=== PATIENT | male | born 1965 ===

== ENCOUNTER 2021-10-20 12:40 | Inpatient (IN) | payer MEDICARE ==
[~2021-10-20] VITALS: Ht 193 cm; Wt 114.8 kg
[2021-10-20] MEDS ORDERED: OLANZapine 5 MG RAPDIS TABLET PO PRN (14:15)
[2021-10-20] MEDS ORDERED: LORazepam 2 MG TABLET PO PRN (14:15)
[2021-10-20] MEDS ORDERED: ZOLPIDEM TARTRATE 10 MG TABLET PO PRN (14:15)
[2021-10-20 14:43] LABS: BASOPHILS % (AUTO) 0.5 % (0.0-2.0); EOSINOPHILS % (AUTO) 1.9 % (1.0-6.0); HEMATOCRIT 40.3 % (41-53); HEMOGLOBIN 12.8 g/dL (13.5-17.5); LYMPHOCYTES % (AUTO) 27.9 % (22.0-44.0); MEAN CORPUSCULAR HGB CONC 31.8 G/dL (31.0-37.0); MEAN CORPUSCULAR VOLUME 72 fL (80-100); MONOCYTES # (AUTO) 0.3 K/uL (0.1-1.0); MONOCYTES % (AUTO) 3.7 % (2.0-9.0); NEUTROPHILS # (AUTO) 4.7 K/uL (1.8-7.7); PLATELET COUNT (AUTO) 228 K/uL (150-450); RED BLOOD CELL COUNT(AUTO) 5.57 MIL/uL (4.50-5.90); RED CELL DISTRIBUTION WIDTH 15.6 % (11.5-14.5)
[2021-10-20 14:52] LABS: ANION GAP 4 mmol/L (8-16); CALCIUM, TOTAL 9.4 mg/dL (8.8-10.5); CARBON DIOXIDE 29 mmol/L (22-29); CHLORIDE 103 mmol/L (98-107); CREATININE 1.03 mg/dL (0.60-1.30); GLUCOSE,RANDOM 90 mg/dL (70-110); POTASSIUM 4.4 mmol/L (3.5-5.1); SODIUM SERUM 136 mmol/L (136-145); UREA NITROGEN, BLOOD 9 mg/dL (7-18)
[2021-10-20 14:58] LABS: ALANINE AMINOTRANSFERASE 41 U/L (12-78); ALBUMIN 3.7 g/dL (3.4-5.0); ALKALINE PHOSPHATASE 82 U/L (46-116); ASPARTATE AMINOTRANSFERASE 34 U/L (15-37); BILIRUBIN,TOTAL 0.7 mg/dL (0.1-1.0); TOTAL PROTEIN, SERUM 7.7 g/dL (6.4-8.2)
[2021-10-20 15:03] LABS: GLOMERULAR FILTR. RATE CALC > 60 mL/min (>60)
[2021-10-20 15:05] LABS: APPEARANCE,URINE CLEAR (CLEAR); BILIRUBIN,URINE NEGATIVE (NEGATIVE); GLUCOSE, URINE (UA) NEGATIVE (NEGATIVE); KETONES,URINE NEGATIVE (NEGATIVE); LEUKOCYTE ESTERASE ,URINE NEGATIVE (NEGATIVE); NITRATE,URINE NEGATIVE (NEGATIVE); OCCULT BLOOD,URINE NEGATIVE (NEGATIVE); PH,URINE 5.5 (5.0-8.0); PROTEIN,URINE NEGATIVE (NEGATIVE); SPECIFIC GRAVITIY, URINE 1.022 (1.003-1.030); UROBILINOGEN,URINE <=1.0 mg/dL (<=1.0)
[2021-10-20 15:11] LABS: AMPHET/METH SCREEN,URINE NEGATIVE (NEGATIVE); BARBITURATE SCREEN, URINE NEGATIVE (NEGATIVE); BENZODIAZEPINES SCREEN,URINE NEGATIVE (NEGATIVE); CANNABINOID SCREEN,URINE NEGATIVE (NEGATIVE); COCAINE SCREEN,URINE NEGATIVE (NEGATIVE); METHADONE SCREEN, URINE NEGATIVE (NEGATIVE); OPIATE SCREEN,URINE NEGATIVE (NEGATIVE)
[2021-10-20 15:15] LABS: PHENCYCLIDINE SCREEN,URINE NEGATIVE (NEGATIVE)
[2021-10-20 15:38] LABS: BACTERIA,URINE None Seen /HPF (None Seen); RBC,URINE None Seen /HPF (0-2); WBC,URINE None Seen /HPF (0-5)
[2021-10-20 18:53] LABS: COVID AG,FIA SOURCE NASAL SWAB
[2021-10-21] MEDS ORDERED: GuaiFENesin/D-METHORPHAN [SUGAR-FREE] 200-20MG/10 ML SYRUP UDCUP PO PRN (10:30)
[2021-10-21] MEDS ORDERED: ACETAMINOPHEN 325 MG TABLET PO PRN (10:30)
[2021-10-21] MEDS ORDERED: MAG HYDROX/AL HYDROX/SIMETH ES 30 ML SUSPENSION UDCUP PO PRN (10:30)
[2021-10-21] MEDS ORDERED: LOPERAMIDE HCL 2 MG CAPSULE PO PRN (10:30)
[2021-10-21] MEDS ORDERED: PROMETHAZINE HCL 25 MG TABLET PO PRN (10:30)
[2021-10-21] MEDS ORDERED: MAGNESIUM HYDROXIDE SUSPENSION 30 ML UDCUP PO PRN (10:30)
[2021-10-21] MEDS ORDERED: HydrOXYzine PAMOATE 50 MG CAPSULE PO PRN (10:30)
[2021-10-21] MEDS ORDERED: TUBERCULIN, PURIFIED PROTEIN DERIVATIVE 5 TU/0.1 ML SYRINGE ID ONE (10:30)
[2021-10-21 10:45] VITALS: BP 131/76
[2021-10-21] MEDS: THIAMINE 100 MG TABLET PO SCH (16:02)
[2021-10-21] MEDS ORDERED: QUEtiapine FUMARATE 100 MG TABLET PO PRN (16:30)
[2021-10-21 16:37] VITALS: BP 129/88
[2021-10-21] MEDS ORDERED: DIVALPROEX SODIUM 250 MG ER TABLET PO SCH (17:00)
[2021-10-21] MEDS: QUEtiapine FUMARATE 200 MG TABLET PO SCH (20:01)
[2021-10-21] MEDS: MELATONIN 5 MG TABLET PO SCH (21:00)
[2021-10-21] MEDS ORDERED: OLANZapine 5 MG RAPDIS TABLET PO SCH (21:00)
[2021-10-22] MEDS: OMEGA-3/DHA/EPA/FISH OIL 1,000 MG CAPSULE PO SCH ×2 (07:55→09:00)
[2021-10-22] MEDS: NALTREXONE HCL 50 MG TABLET PO SCH ×2 (07:55→09:00)
[2021-10-22] MEDS: DIVALPROEX SODIUM 500 MG ER TABLET PO SCH ×3 (07:55→20:21)
[2021-10-22] MEDS: QUEtiapine FUMARATE 200 MG TABLET PO SCH ×2 (07:55→20:22)
[2021-10-22] MEDS: FOLIC ACID 1 MG TABLET PO SCH ×2 (07:55→09:00)
[2021-10-22] MEDS: THIAMINE 100 MG TABLET PO SCH ×3 (07:55→15:58)
[2021-10-22] MEDS: MULTIVITAMINS WITH MINERALS, THERAPEUTIC TABLET PO SCH ×2 (07:55→09:00)
[2021-10-22] MEDS: ARIPiprazole 15 MG TABLET PO SCH (07:55)
[2021-10-22] MEDS ORDERED: HALOPERIDOL LACTATE 5 MG/ML VIAL IM ONE (08:15)
[2021-10-22] MEDS ORDERED: LORazepam 2 MG/ML VIAL IM ONE (08:15)
[2021-10-22] MEDS ORDERED: DiphenhydrAMINE HCL 50 MG/ML VIAL IM ONE (08:15)
[2021-10-22] MEDS ORDERED: DULoxetine HCL 20 MG CAPSULE PO SCH (09:00)
[2021-10-22 10:02] VITALS: BP 147/96
[2021-10-22 16:17] VITALS: BP 132/76
[2021-10-22] MEDS ORDERED: NALT50TA PO (16:35)
[2021-10-22] MEDS ORDERED: DIVA-80 PO (16:35)
[2021-10-22] MEDS ORDERED: QUET200T30 PO (16:35)
[2021-10-22] MEDS ORDERED: MELA5TAB40 PO (16:35)
[2021-10-22] MEDS ORDERED: OMEG-108 PO (16:35)
[2021-10-22] MEDS: MELATONIN 5 MG TABLET PO SCH (20:22)
[2021-10-23] MEDS: ARIPiprazole 15 MG TABLET PO SCH (09:00)
[2021-10-23] MEDS: OMEGA-3/DHA/EPA/FISH OIL 1,000 MG CAPSULE PO SCH (09:00)
[2021-10-23] MEDS: NALTREXONE HCL 50 MG TABLET PO SCH (09:00)
[2021-10-23] MEDS: MULTIVITAMINS WITH MINERALS, THERAPEUTIC TABLET PO SCH (09:00)
[2021-10-23] MEDS: DIVALPROEX SODIUM 500 MG ER TABLET PO SCH (09:00)
[2021-10-23] MEDS: QUEtiapine FUMARATE 200 MG TABLET PO SCH (09:00)
[2021-10-23] MEDS: FOLIC ACID 1 MG TABLET PO SCH (09:00)
[2021-10-23] MEDS: THIAMINE 100 MG TABLET PO SCH (09:00)
== END 2021-10-23 10:28 | disposition home or self-care (01) | DRG 885 ==
LOC: EMS 12:40 → 3EC 10-21 09:23 → 3EI 10-21 09:50 → 3EC 10-21 10:48
PROVIDERS: ADMIT Psychiatry & Neurology Psychiatry; ATTEND Psychiatry & Neurology Psychiatry
DX: F25.9 Schizoaffective disorder, unspecified (principal); R45.851 Suicidal ideations; F41.0 Panic disorder [episodic paroxysmal anxiety]; Z20.822 Contact with and (suspected) exposure to COVID-19; G47.00 Insomnia, unspecified; G89.29 Other chronic pain; F17.210 Nicotine dependence, cigarettes, uncomplicated; J44.9 Chronic obstructive pulmonary disease, unspecified; M79.7 Fibromyalgia; Z55.9 Problems related to education and literacy, unspecified; Z59.9 Problem related to housing and economic circumstances, unspecified; Z63.9 Problem related to primary support group, unspecified; Z65.3 Problems related to other legal circumstances; Z91.51 Personal history of suicidal behavior
CPT/HCPCS: 80053; 81001; 81003; 85025; 99285; G0480; J2060